=== PATIENT | male | born 1945 | race Caucasian/White ===

== ENCOUNTER 2018-10-12 10:25 | Day surgery (SDC) | payer MEDICARE, OTHER ==
[~2018-10-12 10:25] MED LIST: SEVOFLURANE 15 MIN
[2018-10-12] MEDS: LACTATED RINGER'S 1,000 ML IV (11:35)
[2018-10-12] MEDS ORDERED: DIPHENHYDRAMINE 50 MG INJ IV (12:30)
[2018-10-12] MEDS ORDERED: MEPERIDINE 25 MG INJ IV (12:30)
[2018-10-12] MEDS ORDERED: ONDANSETRON 4 MG INJ IV (12:30)
[2018-10-12] MEDS ORDERED: HYDROmorphONE 1 MG/5 ML IV SYRINGE IV ×2 (12:30)
[2018-10-12] MEDS ORDERED: FENTAnyl 50 MCG/ML VIAL IV (12:30)
[2018-10-12] MEDS ORDERED: PROCHLORPERAZINE 10 MG INJ IV (12:30)
[2018-10-12] MEDS ORDERED: MIDAZOLAM 1 MG/ML 2 ML INJ (12:36)
[2018-10-12] MEDS ORDERED: LIDOCAINE 2% (SDV) 5 ML INJ (12:36)
[2018-10-12] MEDS ORDERED: PROPOFOL 20 ML (12:36)
[2018-10-12] MEDS ORDERED: FENTAnyl 50 MCG/ML VIAL ×3 (12:37→13:38)
[2018-10-12] MEDS ORDERED: CEFAZOLIN 1 GM INJ (12:42)
[2018-10-12] MEDS ORDERED: ONDANSETRON 4 MG INJ (13:02)
[2018-10-12] MEDS ORDERED: DEXAMETHASONE 4 MG/ML 5 ML INJ (13:02)
[2018-10-12] MEDS ORDERED: FAMOTIDINE 20 MG INJ (13:02)
[2018-10-12] MEDS: IOHEXOL 300MG/ML 30 ML BTL (13:23)
[2018-10-12] MEDS ORDERED: hydrALAzine 20 MG INJ IV (14:30)
[2018-10-12] MEDS ORDERED: HYDROCODONE/APAP (5/325) TAB PO (14:30)
[2018-10-12] MEDS: OXYCODONE/ACETAMINOPHEN (5/325) TAB PO (16:37)
== END 2018-10-12 16:50 | disposition home or self-care (01) ==
LOC: SDS 10:25
DX: R31.29 Other microscopic hematuria (principal); I10 Essential (primary) hypertension; E78.5 Hyperlipidemia, unspecified; E03.9 Hypothyroidism, unspecified
CPT/HCPCS: 52204; 74430; 88104; 88305